=== PATIENT | male | born 1980 | race Caucasian/White ===

== ENCOUNTER 2018-04-17 16:25 | Inpatient (IN) | payer SELFPAY ==
[2018-04-17] MEDS ORDERED: ONDANSETRON 4 MG/2 ML VIAL IVP ONE (16:43)
[2018-04-17] MEDS ORDERED: HYDROmorphONE/DILAUDID 2 MG/ML INJ IVP ONE (16:43)
[2018-04-17] MEDS ORDERED: NS 1,000 ML IV ONE ×2 (16:43→19:01)
[2018-04-17 16:50] LABS: PLATELET COUNT 253 10^3/uL (150-400)
[2018-04-17] MEDS ORDERED: IOPAMIDOL (ISOVUE-300) 100 ML BTL ONE (17:02)
--- NOTE | 2018-04-17 17:21 | EDPHY ---
H & P Time Seen by Provider: 04/17/18 16:31 HPI/ROS: HPI Right lower abdominal pain. 37-year-old male by private vehicle. This patient presents to the emergency department complaining of right lower quadrant abdominal pain which has been worsening over the last 2 days. He describes the pain is initially starting in his periumbilical area and then migrating down to his right lower quadrant. He has had nausea with 2-3 episodes of nonbilious, nonbloody vomiting over the last 2 days. He reports he has not eaten any solid food since Monday. He has been drinking water all day today. No prior abdominal surgical history. He has had frequent small bowel movements. No bloody or melenic stool. ROS: Constitutional: No fever, no chills. No weakness. Eyes: No discharge. No changes in vision. ENT: No sore throat. No nasal congestion or rhinorrhea. Respiratory: No cough. No shortness of breath. Cardiac: No chest pain, no palpitations. Gastrointestinal: As above, no diarrhea. Genitourinary: No hematuria. No dysuria or increased frequency with urination. He denies testicular pain. Musculoskeletal: No back pain. No neck pain. No myalgias or arthralgias. Skin: No rashes. Neurological: No headache. No focal weakness or altered sensation. Past medical history: Asthma. Social history: Nonsmoker. No alcohol. Here by himself. He is a traveling therapist. Physical Exam: General Appearance: Alert, he is not in distress. This patient is responding to questions appropriately and in full sentences. This patient appears well- hydrated and well-nourished. Eyes: Pupils equal and round no pallor or injection. No lid edema, erythema or injection. Respiratory: There are no retractions, lungs are clear to auscultation with good air movement bilaterally. Cardiovascular: Regular rate and rhythm. No murmur. Gastrointestinal: Abdomen is soft with right lower quadrant tenderness on palpation and guarding, no masses, bowel sounds normal. No focal tenderness at McBurney's point. No Rowe sign. Neurological: Motor sensory function is grossly intact. Cranial nerves are normal. Gait is normal. Skin: Warm and dry, no rashes. Musculoskeletal: Neck is supple and nontender. Extremities are symmetrical. All joints range without pain or impingement. Psychiatric: No agitation. No depression. Database: EKG: Imaging: CT abdomen and pelvis with IV contrast: Diverticulitis of the sigmoid colon with micro perforations. Results discussed with staff radiologist Dr. Matthias Lopez. Please see his report for further details. Procedures: Emergency department course: Triage vital signs reviewed. He is moderately hypertensive. He is tachycardic at 111. Borderline febrile at 37.5 C. IV was placed. He was placed on a monitor. He was started on IV normal saline with 1 L to be given over the next hour. He was given 0.5 mg of IV hydromorphone initially for pain. He was given 4 mg of IV Zofran. He consents to emergency department workup and CT imaging. 6:40 p.m., patient re-evaluated. Results of CT scan discussed with him. Diagnosis reviewed. Sepsis protocol initiated. Blood cultures will be obtained. Patient will be started on IV Rocephin 2 g and IV Flagyl 500 mg. Hospitalist paged. 6:45 p.m., case discussed with on-call hospitalist Dr. Shayy Plascencia. She accepts this patient for admission. 7:00 p.m., the patient's initial venous lactate is 1.0. The patient does not meet criteria for severe sepsis. The patient is currently receiving IV antibiotics as above. Blood cultures have been obtained. The patient was admitted to the hospitalist service in stable condition. Differential Diagnosis: The differential diagnosis on this patient includes but is not limited to diverticulitis, appendicitis. Cholecystitis, ureterolithiasis, volvulus, testicular torsion unlikely. This represents a partial list of diagnoses considered. These considerations are based on history, physical exam, past history, reassessment and diagnostic testing. Smoking Status: Never smoked Constitutional: Initial Vital Signs Temperature (C) 37.5 C 04/17/18 16:27 Heart Rate 111 H 04/17/18 16:27 Respiratory Rate 18 04/17/18 16:27 Blood Pressure 163/95 H 04/17/18 16:27 O2 Sat (%) 97 04/17/18 16:27 O2 Delivery Mode Room Air Allergies/Adverse Reactions: No Known Allergies Allergy (Unverified 04/17/18 16:30) Home Medications: Medication Instructions Recorded Albuterol 04/17/18 Medical Decision Making - Diagnostics Imaging Results: Imaging Impressions Abdomen CT 04/17/18 16:44 Impression: 1. Severe acute diverticulitis of the sigmoid colon extending for 10 cm with several foci of microperforations and pericolonic inflammatory changes of the mesenteric fat. 2. No CT evidence of appendicitis, drainable abscess or bowel obstruction. 3. Old moderate L2 compression fracture, likely posttraumatic. Findings and recommendations discussed with Emergency Department physician, Robert Trevino MD at 17:33 hour, 04/17/2018. Final report concurs with initial preliminary interpretation. - Data Points Laboratory Results: Laboratory Results 04/17/18 16:40 04/17/18 16:40 04/17/18 04/17/18 04/17/18 18:45 16:48 16:48 WBC RBC Hgb POC Hgb 15.0 gm/dL gm/dL (13.7-17.5) Hct POC Hct 44 % % (40-51) MCV MCH MCHC RDW Plt Count MPV Neut % (Auto) Lymph % (Auto) [place] % (Auto) Eos % (Auto) Baso % (Auto) Nucleat RBC Rel Count Absolute Neuts (auto) Absolute Lymphs (auto) Absolute Monos (auto) Absolute Eos (auto) Absolute Basos (auto) Absolute Nucleated RBC Immature Gran % Immature Gran # RBC/WBC/PLT Morphology Platelet Estimate PT INR APTT VBG Lactic Acid 1.0 mmol/L mmol/L (0.7-2.1) POC Sodium 137 mEq/L mEq/L (135-145) Sodium POC Potassium 3.5 mEq/L mEq/L (3.3-5.0) Potassium POC Chloride 99 mEq/L mEq/L (97-110) Chloride Carbon Dioxide Anion Gap POC BUN 12 mg/dL mg/dL (7-23) BUN Creatinine POC Creatinine 1.0 mg/dL mg/dL (0.7-1.3) Estimated GFR Glucose POC Glucose 110 mg/dL H mg/dL (70-100) Calcium Total Bilirubin Pending Conjugated Bilirubin Unconjugated Bilirubin AST ALT Alkaline Phosphatase Total Protein Albumin Urine Color Urine Appearance Urine pH Ur Specific [place] Urine Protein Urine Ketones Urine Blood Urine Nitrate Urine Bilirubin Urine Urobilinogen Ur Leukocyte Esterase Urine RBC Urine WBC Ur Epithelial Cells Urine Mucus Urine Glucose 04/17/18 04/17/18 04/17/18 16:40 16:40 16:40 WBC RBC Hgb POC Hgb Hct POC Hct MCV MCH MCHC RDW Plt Count MPV Neut % (Auto) Lymph % (Auto) [place] % (Auto) Eos % (Auto) Baso % (Auto) Nucleat RBC Rel Count Absolute Neuts (auto) Absolute Lymphs (auto) Absolute Monos (auto) Absolute Eos (auto) Absolute Basos (auto) Absolute Nucleated RBC Immature Gran % Immature Gran # RBC/WBC/PLT Morphology Platelet Estimate PT 14.1 SEC SEC (12.0-15.0) INR 1.07 (0.83-1.16) APTT 27.6 SEC SEC (23.0-38.0) VBG Lactic Acid POC Sodium Sodium 133 mEq/L L mEq/L (135-145) POC Potassium Potassium 3.9 mEq/L mEq/L (3.5-5.2) POC Chloride Chloride 98 mEq/L mEq/L (97-110) Carbon Dioxide 24 mEq/l mEq/l (22-31) Anion Gap 11 mEq/L mEq/L (6-14) POC BUN BUN 14 mg/dL mg/dL (7-23) Creatinine 1.0 mg/dL mg/dL (0.7-1.3) POC Creatinine Estimated GFR > 60 Glucose 110 mg/dL H mg/dL (70-100) POC Glucose Calcium 9.6 mg/dL mg/dL (8.5-10.4) Total Bilirubin 2.3 mg/dL H mg/dL (0.1-1.4) Conjugated Bilirubin 0.5 mg/dL mg/dL (0.0-0.5) Unconjugated Bilirubin 1.8 mg/dL H mg/dL (0.0-1.1) AST 92 IU/L H IU/L (17-59) ALT 78 IU/L H IU/L (21-72) Alkaline Phosphatase 78 IU/L IU/L (38-126) Total Protein 8.0 g/dL g/dL (6.3-8.2) Albumin 4.9 g/dL g/dL (3.5-5.0) Urine Color ANA MARIA Urine Appearance HAZY Urine pH 5.0 (5.0-7.5) Ur Specific [place] 1.028 (1.002-1.030) Urine Protein 2+ H (NEGATIVE) Urine Ketones TRACE H (NEGATIVE) Urine Blood 1+ H (NEGATIVE) Urine Nitrate NEGATIVE (NEGATIVE) Urine Bilirubin NEGATIVE (NEGATIVE) Urine Urobilinogen 2.0 EU H EU (0.2-1.0) Ur Leukocyte Esterase NEGATIVE (NEGATIVE) Urine RBC 3-5 /hpf H /hpf (0-3) Urine WBC 1-3 /hpf /hpf (0-3) Ur Epithelial Cells NONE SEEN /lpf /lpf (NONE-1+) Urine Mucus 4+ /lpf H /lpf (NONE-1+) Urine Glucose NEGATIVE (NEGATIVE) 04/17/18 16:40 WBC 15.10 10^3/uL H 10^3/uL (3.80-9.50) RBC 4.75 10^6/uL 10^6/uL (4.40-6.38) Hgb 14.4 g/dL g/dL (13.7-17.5) POC Hgb Hct 41.3 % % (40.0-51.0) POC Hct MCV 86.9 fL fL (81.5-99.8) MCH 30.3 pg pg (27.9-34.1) MCHC 34.9 g/dL g/dL (32.4-36.7) RDW 12.0 % % (11.5-15.2) Plt Count 253 10^3/uL 10^3/uL (150-400) MPV 10.3 fL fL (8.7-11.7) Neut % (Auto) 75.6 % H % (39.3-74.2) Lymph % (Auto) 12.0 % L % (15.0-45.0) [place] % (Auto) 11.9 % % (4.5-13.0) Eos % (Auto) 0.1 % L % (0.6-7.6) Baso % (Auto) 0.1 % L % (0.3-1.7) Nucleat RBC Rel Count 0.0 % % (0.0-0.2) Absolute Neuts (auto) 11.42 10^3/uL H 10^3/uL (1.70-6.50) Absolute Lymphs (auto) 1.81 10^3/uL 10^3/uL (1.00-3.00) Absolute Monos (auto) 1.80 10^3/uL H 10^3/uL (0.30-0.80) Absolute Eos (auto) 0.02 10^3/uL L 10^3/uL (0.03-0.40) Absolute Basos (auto) 0.02 10^3/uL 10^3/uL (0.02-0.10) Absolute Nucleated RBC 0.00 10^3/uL 10^3/uL (0-0.01) Immature Gran % 0.3 % % (0.0-1.1) Immature Gran # 0.05 10^3/uL 10^3/uL (0.00-0.10) RBC/WBC/PLT Morphology TNP Platelet Estimate TNP PT INR APTT VBG Lactic Acid POC Sodium Sodium POC Potassium Potassium POC Chloride Chloride Carbon Dioxide Anion Gap POC BUN BUN Creatinine POC Creatinine Estimated GFR Glucose POC Glucose Calcium Total Bilirubin Conjugated Bilirubin Unconjugated Bilirubin AST ALT Alkaline Phosphatase Total Protein Albumin Urine Color Urine Appearance Urine pH Ur Specific [place] Urine Protein Urine Ketones Urine Blood Urine Nitrate Urine Bilirubin Urine Urobilinogen Ur Leukocyte Esterase Urine RBC Urine WBC Ur Epithelial Cells Urine Mucus Urine Glucose Medications Given: Discontinued Medications Hydromorphone HCl (Dilaudid) 0.5 mg IVP EDNOW ONE Stop: 04/17/18 16:44 Last Admin: 04/17/18 17:06 Dose: 0.5 mg Sodium Chloride (Ns) 1,000 mls @ 0 mls/hr IV EDNOW ONE; Wide Open PRN Reason: Protocol Stop: 04/17/18 16:44 Last Admin: 04/17/18 16:47 Dose: 1,000 mls Ondansetron HCl (Zofran) 4 mg IVP EDNOW ONE Stop: 04/17/18 16:44 Last Admin: 04/17/18 16:47 Dose: 4 mg Point of Care Test Results: Chemistry 04/17/18 16:48 POC Sodium 137 mEq/L mEq/L (135-145) POC Potassium 3.5 mEq/L mEq/L (3.3-5.0) POC Chloride 99 mEq/L mEq/L (97-110) POC BUN 12 mg/dL mg/dL (7-23) POC Creatinine 1.0 mg/dL mg/dL (0.7-1.3) POC Glucose 110 mg/dL H mg/dL (70-100) ISTAT H&H 04/17/18 16:48 POC Hgb 15.0 gm/dL gm/dL (13.7-17.5) POC Hct 44 % % (40-51) Departure - Departure Disposition: [facility] Acute Clinical Impression: Diverticulitis
[2018-04-17 18:40] LABS: INR 1.07 (0.83-1.16); PROTIME(PATIENT) 14.1 SEC (12.0-15.0)
[2018-04-17] MEDS ORDERED: ONDANSETRON DISINTEGRATING 4 MG TAB PO PRN (18:47)
[2018-04-17] MEDS ORDERED: ONDANSETRON 4 MG/2 ML VIAL IVP PRN (18:47)
[2018-04-17] MEDS ORDERED: NS 1,000 ML IV SCH (19:00)
[2018-04-17] MEDS ORDERED: cefTRIAXone 1 GM/DEXTROSE 1 GM/50 ML BAG IV ONE (19:04)
--- NOTE | 2018-04-17 19:20 | PDGENHP ---
History and Physical - Chief Complaint Abdominal pain, diarrhea - History of Present Illness 37 y/o male presents to the ED with worsening abdominal pain and diarrhea. On Monday, he ate chicken nachos and shortly after felt an intense pain periumbilical region that moved to his RLQ. He also began to have diarrhea and thought these two symptoms were food poisoning. He felt nauseous, emesis 2-3x, denies hematemesis. Denies hematochezia. His abdominal pain did not subside and describes it as "glass shards going through my stomach." He has not been able to eat anything since Monday. He has been able to intake fluids. Endorses headache. Denies chest pains, SOB, dysuria. Abdominal CT w/ contrast reveals: severe acute diverticulitis of the sigmoid colon extending for 10 cm with several foci of microperforations and pericolonic inflammatory changes of the mesenteric fat. No CT evidence of appendicitis, drainable abscess or bowel obstruction. Past Medical/Surgical History 1. 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 Denies tobacco or illicit drug use. No alcohol Vital Signs 163/95 111 18 Respirations 97% RA 37.5c History Information - Allergies/Home Medication List Allergies/Adverse Reactions: No Known Allergies Allergy (Unverified 04/17/18 16:30) Home Medications: Albuterol [Ventolin Hfa Inhaler] 1 - 2 puffs IH Q4-6PRN PRN 04/17/18 [Last Taken Unknown] Loratadine [Claritin 10 mg] 10 mg PO DAILY 04/17/18 [Last Taken Unknown] Multivitamins [Multivitamin (*)] 1 each PO DAILY 04/17/18 [Last Taken Unknown] Sesser-3 Fatty Acids [Fish Oil 1000 mg (*)] 1,000 mg PO DAILY 04/17/18 [Last Taken Unknown] I have personally reviewed and updated: family history, medical history, social history, surgical history Past Medical History: See HPI List - Surgical History Additional surgical history: See HPI List - Family History Additional family history: Father has diverticulitis - Social History Smoking Status: Never smoked Alcohol Use: None Drug Use: None Review of Systems Review of Systems: ROS: 10pt was reviewed & negative except for what was stated in HPI & below Constitutional: Reports: fever, malaise, weakness EENMT: Reports: no symptoms Cardiac: Reports: no symptoms Respiratory: Reports: no symptoms Gastrointestinal: Reports: vomitting, abdominal pain, diarrhea, nausea Genitourinary: Reports: no symptoms Muscolosketal: Reports: other (Generalized body aches) Skin: Reports: no symptoms Neurological: Reports: headache Hematologic/Lymphatic: Reports: no symptoms Immunologic/Allergy: Reports: no symptoms Physical Exam Physical Exam: Lab data and imaging reviewed WBC: 15.10 AST/ALT: 92/78 Total Bilirubin: 2.[address]: Severe acute diverticulitis of sigmoid colon with several microperforations Temp Pulse Resp BP Pulse Ox 37.5 C 95 16 151/92 H 98 04/17/18 16:27 04/17/18 18:47 04/17/18 18:47 04/17/18 18:47 04/17/18 18:47 Constitutional: no apparent distress, appears nourished, uncomfortable, other ( Pleasant, cooperative patient in no apparent distress.) Eyes: PERRL, anicteric sclera, EOMI Ears, Nose, Mouth, Throat: moist mucous membranes, hearing normal, ears appear normal, no oral mucosal ulcers Peripheral Pulses: 2+: dorsalis-pedis (R) (Radial 2+), dorsalis-pedis (L) ( Radial 2+) Respiratory: no respiratory distress, no rales or rhonchi, clear to auscultation Gastrointestinal: tenderness, other (Hypoactive bowel sounds; tender throughout , but more so BLQ. No Rowe's sign, roving's sign, or rebound.) Genitourinary: no bladder fullness, no bladder tenderness Skin: warm, normal color, no rashes or abrasions, no fluctuance, no induration, No mottled Musculoskeletal: full muscle strength, no muscle tenderness, normal joint ROM, no joint effusions Neurologic: AAOx3, sensation intact bilaterally, CN II-XII Intact Psychiatric: interacting appropriately, not anxious, not encephalopathic, thought process linear Lymph, Heme, Immunologic: no cervical LAD, no supraclavicular LAD Lab Data & Imaging Review 04/17/18 16:40 04/17/18 16:40 WBC 15.10 10^3/uL (3.80-9.50) H 04/17/18 16:40 RBC 4.75 10^6/uL (4.40-6.38) 04/17/18 16:40 Hgb 14.4 g/dL (13.7-17.5) 04/17/18 16:40 POC Hgb 15.0 gm/dL (13.7-17.5) 04/17/18 16:48 Hct 41.3 % (40.0-51.0) 04/17/18 16:40 POC Hct 44 % (40-51) 04/17/18 16:48 MCV 86.9 fL (81.5-99.8) 04/17/18 16:40 MCH 30.3 pg (27.9-34.1) 04/17/18 16:40 MCHC 34.9 g/dL (32.4-36.7) 04/17/18 16:40 RDW 12.0 % (11.5-15.2) 04/17/18 16:40 Plt Count 253 10^3/uL (150-400) 04/17/18 16:40 MPV 10.3 fL (8.7-11.7) 04/17/18 16:40 Neut % (Auto) 75.6 % (39.3-74.2) H 04/17/18 16:40 Lymph % (Auto) 12.0 % (15.0-45.0) L 04/17/18 16:40 [place] % (Auto) 11.9 % (4.5-13.0) 04/17/18 16:40 Eos % (Auto) 0.1 % (0.6-7.6) L 04/17/18 16:40 Baso % (Auto) 0.1 % (0.3-1.7) L 04/17/18 16:40 Nucleat RBC Rel Count 0.0 % (0.0-0.2) 04/17/18 16:40 Absolute Neuts (auto) 11.42 10^3/uL (1.70-6.50) H 04/17/18 16:40 Absolute Lymphs (auto) 1.81 10^3/uL (1.00-3.00) 12/04/18 16:40 Absolute Monos (auto) 1.80 10^3/uL (0.30-0.80) H 04/17/18 16:40 Absolute Eos (auto) 0.02 10^3/uL (0.03-0.40) L 04/17/18 16:40 Absolute Basos (auto) 0.02 10^3/uL (0.02-0.10) 04/17/18 16:40 Absolute Nucleated RBC 0.00 10^3/uL (0-0.01) 04/17/18 16:40 Immature Gran % 0.3 % (0.0-1.1) 04/17/18 16:40 Immature Gran # 0.05 10^3/uL (0.00-0.10) 04/17/18 16:40 RBC/WBC/PLT Morphology TNP 04/17/18 16:40 Platelet Estimate TNP 04/17/18 16:40 PT 14.1 SEC (12.0-15.0) 04/17/18 16:40 INR 1.07 (0.83-1.16) 04/17/18 16:40 APTT 27.6 SEC (23.0-38.0) 04/17/18 16:40 VBG Lactic Acid 1.0 mmol/L (0.7-2.1) 04/17/18 18:45 POC Sodium 137 mEq/L (135-145) 04/17/18 16:48 Sodium 133 mEq/L (135-145) L 04/17/18 16:40 POC Potassium 3.5 mEq/L (3.3-5.0) 04/17/18 16:48 Potassium 3.9 mEq/L (3.5-5.2) 04/17/18 16:40 POC Chloride 99 mEq/L (97-110) 04/17/18 16:48 Chloride 98 mEq/L (97-110) 04/17/18 16:40 Carbon Dioxide 24 mEq/l (22-31) 04/17/18 16:40 Anion Gap 11 mEq/L (6-14) 04/17/18 16:40 POC BUN 12 mg/dL (7-23) 04/17/18 16:48 BUN 14 mg/dL (7-23) 04/17/18 16:40 Creatinine 1.0 mg/dL (0.7-1.3) 04/17/18 16:40 POC Creatinine 1.0 mg/dL (0.7-1.3) 04/17/18 16:48 Estimated GFR > 60 04/17/18 16:40 Glucose 110 mg/dL (70-100) H 04/17/18 16:40 POC Glucose 110 mg/dL (70-100) H 04/17/18 16:48 Calcium 9.6 mg/dL (8.5-10.4) 04/17/18 16:40 Total Bilirubin 2.2 mg/dL (0.1-1.4) H 04/17/18 16:48 Conjugated Bilirubin 0.5 mg/dL (0.0-0.5) 04/17/18 16:40 Unconjugated Bilirubin 1.8 mg/dL (0.0-1.1) H 04/17/18 16:40 AST 92 IU/L (17-59) H 04/17/18 16:40 ALT 78 IU/L (21-72) H 04/17/18 16:40 Alkaline Phosphatase 78 IU/L (38-126) 04/17/18 16:40 Total Protein 8.0 g/dL (6.3-8.2) 04/17/18 16:40 Albumin 4.9 g/dL (3.5-5.0) 04/17/18 16:40 Urine Color ANA MARIA 04/17/18 16:40 Urine Appearance HAZY 04/17/18 16:40 Urine pH 5.0 (5.0-7.5) 04/17/18 16:40 Ur Specific [place] 1.028 (1.002-1.030) 04/17/18 16:40 Urine Protein 2+ (NEGATIVE) H 04/17/18 16:40 Urine Ketones TRACE (NEGATIVE) H 04/17/18 16:40 Urine Blood 1+ (NEGATIVE) H 04/17/18 16:40 Urine Nitrate NEGATIVE (NEGATIVE) 04/17/18 16:40 Urine Bilirubin NEGATIVE (NEGATIVE) 04/17/18 16:40 Urine Urobilinogen 2.0 EU (0.2-1.0) H 04/17/18 16:40 Ur Leukocyte Esterase NEGATIVE (NEGATIVE) 04/17/18 16:40 Urine RBC 3-5 /hpf (0-3) H 04/17/18 16:40 Urine WBC 1-3 /hpf (0-3) 04/17/18 16:40 Ur Epithelial Cells NONE SEEN /lpf (NONE-1+) 04/17/18 16:40 Urine Mucus 4+ /lpf (NONE-1+) H 04/17/18 16:40 Urine Glucose NEGATIVE (NEGATIVE) 04/17/18 16:40 Assessment & Plan Plan: 37 y/o with acute abdominal pain, nausea, and diarrhea. 1. Abdominal pain: imaging reveals diverticulitis. No appendicitis. -Blood cultures pending -IVF -Rocephin and Flagyl IV -Morphine IVP PRN -Educated pt to f/u outpatient with his PCP/GI MD for a colonoscopy in 6-8 weeks 2. Nausea -Anti-emetics PRN 3. Diarrhea: per pt, diarrhea is resolving 4. Tachycardia: activated sepsis criteria with tachycardia and leukocytosis. Lactic acid was 1.0. -IVF -CBC/CMP tomorrow 5. Elevated liver enzymes and bilirubin -Continue to monitor -CBC/CMP tomorrow 6. Asthma: he reports utilizing his rescue inhaler 3x/week. He does this d/t exercise-induced asthma. Educated pt to f/u with his PCP and discuss the risks vs benefits of incorporating a maintenance inhaler. Diet: Clears VTE ppx: SCDs Code: Full Dispo: Admit to obs
[2018-04-17] MEDS: ACETAMINOPHEN 325 MG TAB PO PRN (19:21)
[2018-04-17] MEDS ORDERED: ALBUTEROL 60 PUFFS/8 GM MDI IH PRN (20:00)
[2018-04-17] MEDS ORDERED: HYDROmorphONE/DILAUDID 1 MG/ML INJ IVP PRN (20:50)
[2018-04-17] MEDS: oxyCODONE IR 5 MG TAB PO PRN (22:44)
[2018-04-18] MEDS: ACETAMINOPHEN 325 MG TAB PO PRN ×2 (00:01→08:46)
[2018-04-18] MEDS: oxyCODONE IR 5 MG TAB PO PRN ×3 (03:02→10:04)
[2018-04-18 05:20] LABS: PLATELET COUNT 202 10^3/uL (150-400)
--- NOTE | 2018-04-18 09:47 | HOSPPROG ---
Hospitalist Progress Note Assessment/Plan: 37 y/o with acute abdominal pain, nausea, and diarrhea. # Sepsis 2/2 acute diverticulitis - (Temp, leukocytosis), hemodynamically stable this am. WBC's trending down. CT reviewed, +sigmoid diverticulitis -cont Rocephin and Flagyl IV -NPO, IVF's -surgical evaluation today, discussed with Dr. Brownlee -Morphine IVP PRN -f/u outpatient with his PCP/GI MD for a colonoscopy in 6-8 weeks # Nausea -Anti-emetics PRN # Diarrhea: per pt, diarrhea is resolving # Elevated liver enzymes and bilirubin - could be sepsis response, trending down -cont to trend # Asthma: stable, no exac -prn albuterol Diet: Clears VTE ppx: SCDs Code: Full Dispo: change to inpt for ongoing management of acute, severe diverticulitis Subjective: Pt feels ok. Had high fever overnight. Still with significant pain. No N/V. +BM. Objective: Vital Signs Temp Pulse Resp BP Pulse Ox 37.3 C 87 16 108/67 95 04/18/18 08:08 04/18/18 08:08 04/18/18 08:08 04/18/18 08:08 04/18/18 08:08 Laboratory Results 04/18/18 04:43 04/18/18 04:43 04/17/18 04/18/18 04/19/18 05:59 05:59 05:59 Intake Total 4358 Output Total 600 Balance 3758 PT 14.1 SEC (12.0-15.0) 04/17/18 16:40 INR 1.07 (0.83-1.16) 04/17/18 16:40 - Physical Exam Constitutional: no apparent distress Eyes: PERRL Ears, Nose, Mouth, Throat: moist mucous membranes Cardiovascular: regular rate and rhythym Respiratory: no respiratory distress, clear to auscultation Gastrointestinal: other (soft, +lower abdominal TTP, some voluntary guarding, no peritoneal signs) Skin: warm Musculoskeletal: full muscle strength Neurologic: AAOx3 Psychiatric: interacting appropriately ICD10 Worksheet Patient Problems: Problems Problem Status Onset Diverticulitis Acute
--- NOTE | 2018-04-18 11:37 | GCON ---
REASON FOR CONSULTATION: Diverticulitis. HISTORY: The patient is a 37-year-old male who on Monday (today is Monday) , ate chicken nachos and shortly thereafter felt intense pain in the periumbilical region. He began to have some diarrhea and thought he might have had food poisoning. He felt nauseous. Apparently he had an emesis 2 to 3 times. His abdominal pain did not subside. He has not been able to eat anything since Monday. He presented to the ER for evaluation. In the ER, CT scan shows a ~10 cm segment of the proximal sigmoid with pericolonic inflammatory changes and several pockets of air, but no obvious abscess. He was admitted and placed on antibiotics (ceftriaxone and Flagyl). His temperature has come down to 37.3. His vital signs are stable. His white count has dropped from 15, 000 to 12,000, but still has 74% segs. His glucose went from 253 to 202. Of note, he has an elevated indirect bilirubin suggestive of Gilbert's syndrome. His lactate is 1.0. His abdomen shows hypoactive bowel sounds. He is tender with cough in the medial left lower quadrant. It is a tender at 7/10. To palpation, his right upper quadrant is 1, right mid abdomen is 1, right lower quadrant is 1, epigastrium is 1 to 2 , periumbilical area is 2, suprapubic is 4, left upper quadrant 1, left mid abdomen is 4, left lower quadrant is 4 to 5. I reviewed his CAT scan. He does not have any focal abscess. He does have an a section of diverticulitis with pericolonic edema and stranding. There are also pockets of air, but no obvious abscess. There is no fluid collection in the pelvis. RECOMMENDATIONS: At this point, I concur with the current plan of a nonoperative approach. I would plan to keep him n.p.o. until his white count has returned to normal and he is passing gas on a regular basis. At that point , I would consider feeding him. I would give him clear liquids for 2 meals to make sure that did not exacerbate his problem and then try a regular diet, but avoid constipating foods, such as bananas, rice, applesauce, and cheese. I suspect he will have to go home on a fiber agent, such as Metamucil or MiraLAX. I also suspect he will go home on an antibiotic. I have talked to him about the possibilities of surgery and I have told him it may become necessary but that at this time it is remote. That might include a surgical resection of the area in question or it might include a colostomy and a damage control surgery if this process goes dramatically in the wrong direction. I think it is unlikely eventuality. He understands the plan. I do recommend the undergoes a colonoscopy in about 8 weeks to make sure there is not an other process causing these findings. /[id number]/MODL MTDD
--- NOTE | 2018-04-18 11:41 | PDMN ---
Medical Necessity Medical necessity: Change to inpt as of 04/18/18 @ 09:54. Pt meets int criteria per MD order and MCG M-150, Diverticulitis, Acute, A-2 days. 37 y/o presented w/ acute abd pain, nausea, and diarrhea, admitted w/acute diverticulitis and sepsis as evidenced by leukocytosis and fevers (T max 102.9 last night), elevated liver enzymes. Persistent significant pain today. IVF, IV ABX's, surgical consult pending. Upgraded to inpt for ongoing management of acute, severe diverticulitis, est LOS>2MN.
--- NOTE | 2018-04-18 12:38 | ASMTCMCOM ---
CM Note CM Note Notes: Reviewed chart, pt admitted for abdominal pain/diarrhea. 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 Per chart pt states does not have insurance. Per MD, pt has diverticulitis, will treat supportively, at this point surgery is not recommended. Anticipate pt will dc home independent when medically stable. CM available for any changes. DC Plan: Independent Date Signed: 04/18/2018 12:38 PM Electronically Signed By:Latosha Borrero RN
[2018-04-18] MEDS: KETOROLAC 30 MG/1 ML SDV IVP SCH ×2 (13:35→18:59)
[2018-04-18] MEDS: ACETAMINOPHEN 500 MG TAB PO SCH ×2 (13:35→22:07)
[2018-04-19] MEDS: ACETAMINOPHEN 500 MG TAB PO SCH (06:00)
[2018-04-19] MEDS: KETOROLAC 30 MG/1 ML SDV IVP SCH ×2 (06:00)
[2018-04-19 08:15] VITALS: BP 108/66
[2018-04-19 09:14] LABS: PLATELET COUNT 199 10^3/uL (150-400)
--- NOTE | 2018-04-19 10:07 | ASMTCMCOM ---
CM Note CM Note Notes: Chart reviewed for discharge planning purposes. Clinically appears to be improving. VSS labs improved. No needs identified. Lives in [place]. CM available should needs arise. Plan: likely to discharge to home independently when medically cleared for discharge. Date Signed: 04/19/2018 10:07 AM Electronically Signed By:Abbey Thornton RN
--- NOTE | 2018-04-19 11:46 | ASMTLACE ---
LACE Length of stay for Answers: 2 days current admission Acuity / Level of Answers: Yes Care: Did the patient have an inpatient admission? Comorbidities - select Answers: Other Notes: DVT all that apply # of Emergency department Answers: 1-2 visits in the last 6 months Score: 7 Date Signed: 04/19/2018 11:46 AM Electronically Signed By:Monae Raman RN
--- NOTE | 2018-04-19 11:50 | ASMTDCNOTE ---
Case Management Discharge Discharge Order Complete? Answers: Yes Patient to Obtain Answers: Independently Medications Discharge Comments Notes: Patient medically ready for d/c, no CM needs identified at this time. Financial Counseling went to visit patient today about his bill - FA application left for patient to complete and follow-up. No other needs at this time. Date Signed: 04/19/2018 11:49 AM Electronically Signed By:Monae Raman RN
--- NOTE | 2018-04-21 06:56 | GDS ---
DISCHARGE DIAGNOSES: 1. Sepsis, secondary to acute diverticulitis, sepsis physiology has resolved. 2. Elevated liver enzyme with hyperbilirubinemia and mild transaminase elevation, down trending at t he time of discharge. 3. Asthma, stable. CONSULTANTS: Dr. Samuel Brownlee, surgery. HISTORY: For details, please see History and Physical dated April 17, 2018. In brief, the patient is a 37-year-old male with a history of asthma, who presented to the emergency department with abdom inal pain and diarrhea. CT imaging revealed severe acute diverticulitis of the sigmoid colon extendi ng for 10 cm with several foci of microperforations and pericolonic inflammatory changes. He was adm itted to the hospital for further management. HOSPITAL COURSE: The patient was admitted to the med/surg unit. He was treated with ceftriaxone plu s Flagyl. He required IV morphine for pain control and received IV fluids. Given the severity of hi s diverticulitis, surgical consult was obtained. He did not require surgical intervention, though he should have an outpatient colonoscopy in 4-6 weeks after he has recovered from his acute diverticuli tis. He was advised of this prior to discharge. His white blood cell count normalized. He remained afebrile. He remained hemodynamically stable. His pain resolved and he wished to discharge home on oral antibiotics. He was noted to have mild elevation of his liver enzymes on arrival with a biliru bin of 2.3, AST 92, and ALT 78. His bilirubin trended down to 1.5. His transaminases remained mildl y elevated around 80. He denied significant alcohol use. His bilirubin may have been elevated in th e setting of sepsis and has improved. He should have outpatient followup to recheck his liver enzyme s with further workup as indicated in the outpatient setting. DISPOSITION: Patient is discharged home in stable condition. FOLLOWUP: The patient should follow up with primary care provider upon return home in 1 week. In ad dition, he should have an outpatient colonoscopy in 4-6 weeks. DISCHARGE MEDICATIONS: Please see [employer] completed outpatient medication list. New medications on discharge include: Ciprofloxacin 500 mg p.o. twice daily #16, no refills, and Flagyl 500 mg p.o. th ree times daily #24, no refills, for a total of 10 days of therapy. Cipro and Flagyl were chosen for cost as he does not have insurance. He will continue all other outpatient medications as previously prescribed. /[id number]/MODL
== END 2018-04-19 11:45 | disposition home or self-care (01) | DRG 872 ==
LOC: F1N 20:02
PROVIDERS: ADMIT Nurse Practitioner; ATTEND Nurse Practitioner
DX: A41.9 Sepsis, unspecified organism (principal); K57.32 Diverticulitis of large intestine without perforation or abscess without bleeding; J45.909 Unspecified asthma, uncomplicated
CPT/HCPCS: 82435-PO; 82565-PO; 82947-PO; 84132-PO; 84295-PO; 84520-PO; 85014-PO; 96374; G0378; J0696; J1170; J1885; J2405; Q9967